=== PATIENT | male | born 2000 | race African-American/Black ===

== ENCOUNTER 2020-10-01 16:50 | Emergency (ER) | payer SELFPAY ==
[2020-10-01] MEDS ORDERED: Ondansetron PF 4 MG/2 ML Vial ONE (17:32)
[2020-10-01] MEDS ORDERED: Ketorolac Tromethamine 30 MG/ML VIAL ONE (17:32)
== END 2020-10-01 19:05 | disposition home or self-care (01) ==
LOC: CSHERS 16:50
DX: R10.31 Right lower quadrant pain (principal); R11.2 Nausea with vomiting, unspecified; F17.290 Nicotine dependence, other tobacco product, uncomplicated
CPT/HCPCS: 74177; 83690; 96374; 96375; J1885; J2405

== ENCOUNTER 2020-10-09 16:45 | Emergency (ER) | payer SELFPAY | END 2020-10-09 19:40 | disposition home or self-care (01) | LOC: CSHERS 16:45 | DX: S29.012A Strain of muscle and tendon of back wall of thorax, initial encounter (principal); F17.290 Nicotine dependence, other tobacco product, uncomplicated; X50.0XXA Overexertion from strenuous movement or load, initial encounter | CPT/HCPCS: 99283 ==